=== PATIENT | male | born 1975 | race Caucasian/White ===

== ENCOUNTER 2017-03-11 13:54 | Inpatient (IN) | payer OTHER ==
--- NOTE | ~2017-03-11 | EKG ---
PATIENT: MIRA GALVAN UNIT #: [id number] Ventricular Rate: 69 BPM Atrial Rate: 69 BPM P-R Interval: 146 ms QRS Duration: 88 ms Q-T Interval: 408 ms QTC Calculation(Bezet): 437 ms P Sumrall: 67 degrees Calculated R Sumrall: 52 degrees Calculated T Sumrall: 21 degrees Diagnosis Line: Normal sinus rhythm Diagnosis Line: Normal ECG Diagnosis Line: When compared with ECG of 31-OCT-2011 20:58, Diagnosis Line: No significant change was found Diagnosis Line: Confirmed by ALYSSIA OWENS MD ([id number]) on Diagnosis Line: 03/12/2017 9:07:55 PM INTERPRETING MD: TINY
--- NOTE | ~2017-03-11 | CR72 ---
[facility] A Service of [facility] & [facility] RADIOLOGY TEXT RESULTS PATIENT: MIRA GALVAN [facility] UNIT #: [id number] AGE: [address]: Tracie Randolph MD SEX: M ORDER DR: [id number] [facility] [address] [facility]. [place], [place] [address] [id number] MR#: [id number] Acc #: [id number] NAME: MIRA GALVAN : 1975 SEX: M STUDY DATE/TIME: 03/11/2017 14:14 UNIT: [facility] ROOM: STUDY DESCRIPTION: CR Chest Single View Portable Attending Physician: Paxton Vaughn M.D. Ordering Physician: Paxton Vaughn M.D. Primary Care Physician: No Primary Care Physician MEDICAL IMAGING REPORT This report is preliminary unless electronic signature is present EXAM Portable chest x-ray 03/11/2017 HISTORY Cardiac arrest. Today. Heroin OD, CPR performed. Right rib pain post CPR. AP radiograph of the chest is presented. COMPARISON 10/31/2011 FINDINGS No acute bony abnormality is seen on this single AP image. Please correlate clinically. If it would assist in management, dedicated rib series could be considered. Heart and mediastinum normal in size and contour. Lungs well inflated without evidence of acute pulmonary disease. No pleural effusion or pneumothorax. Extreme lung bases not included on field of view. No suspicious nodule. There appear to be calcified granulomata in the right lung. Dictated by... Demetrius Benavides M.D. THIS IS AN ELECTRONICALLY VERIFIED REPORT Demetrius Benavides M.D. at 03/12/2017 5:16 PM Rg TD: 03/11/2017 16:53 JOB #: [id number] MEDICAL IMAGING REPORT Page 1 of 1 COPY
--- NOTE | ~2017-03-11 | HP ---
Unit #: [id number] #: [id number] Patient: MIRA GALVAN [id number] [address] [address] [id number] I MR#: [id number] NAME: MIRA GALVAN ROOM: [address]75 Age: 41 Sex: M Admission Date: 03/11/2017 : 1975 Attending Physician: Shasta Malik M.D. HISTORY AND PHYSICAL CHIEF COMPLAINT Altered mental status. HISTORY OF PRESENT ILLNESS The patient is a 41-year-old male with a history of alcohol abuse brought to the emergency room after being found down. The patient was resuscitated with CPR for two minutes. The patient did not receive any epinephrine. The patient was brought to the emergency room. The patient received Narcan 4 mg and patient became more alert and awake. The patient complains of rib pain from the CPR. The patient is a poor historian. The patient is sleepy and is not answering much of the questions. The patient stated that patient snorted for the first time today, and the patient passed out. The patient denies chest pain, nausea, vomiting, or shortness of breath. The patient was found to be hypothermic with a temperature of 94. The patient is on Hazel Huggers. PAST MEDICAL HISTORY 1. Alcohol abuse. 2. Multiple admission to [facility] for alcohol abuse. 3. Depression. 4. Chronic back pain. PAST SURGICAL HISTORY Bilateral foot surgery for trauma. SOCIAL HISTORY He drinks heavily 10-12 beers per day. Positive for smoking 1.5 packs per day and positive for heroin. FAMILY HISTORY Father is alcoholic. MEDICATIONS Ibuprofen. ALLERGIES None. REVIEW OF SYSTEMS A 14-point review of systems was performed and only pertinent positive findings are as described above. The remaining are negative. PHYSICAL EXAMINATION GENERAL: Patient is lying in bed not in acute distress. Unit #: [id number] #: [id number] Patient: MIRA GALVAN VITAL SIGNS: Temperature 94.9, pulse 78, respirations 17, and saturating 100% on 15 liters of oxygen. HEENT: Head atraumatic, normocephalic. Pupils equal, round, and reactive to light and accommodation. Extraocular movements are intact. NECK: Supple. LUNGS: Decreased air entry at the bases. HEART: Regular rate and rhythm. ABDOMEN: Soft. Positive bowel sounds. EXTREMITIES: No cyanosis, no clubbing. NEUROLOGIC: Awake and more sleepy. DIAGNOSTIC STUDIES LABORATORY: Urinalysis shows 2+ protein, 2+ blood, urine WBCs 5-10. Urine drug screen is positive for benzodiazepines, amphetamines, and marijuana. Lactic acid is 3.1. Sodium 139, potassium 4.5, chloride 102, bicarb 26, glucose 221, BUN 14, and creatinine 1.5. Alcohol less than 5. INR is 1. WBC 13.8, hemoglobin 14, hematocrit 43.3, and platelets 111,000. ASSESSMENT 1. Altered mental status. 2. Heroin abuse. 3. Resuscitated arrest. 4. Questionable sepsis. 5. Acute kidney injury. PLAN Admit the patient to inpatient. Patient will be placed in the ICU for close monitoring. Continue with IV fluids. Patient will be on Hazel Huggers and sepsis protocol. Rule out ischemia with troponins. Patient will be seen by the leather patcher. Further recommendations will follow. Dictated by Bob Kulkarni TD: 03/11/2017 17:55 JOB #: [id number] HISTORY AND PHYSICAL Page 1 of 1 X SHASTA MALIK MD X HISTORY AND PHYSICAL
--- NOTE | ~2017-03-11 | DS ---
Unit #: [id number] #: [id number] Patient: MIRA GALVAN [id number] [address] [address] [id number] I MR#: [id number] NAME: MIRA GALVAN ROOM: [facility] Age: 41 Sex: M Admission Date: 03/11/2017 : 1975 Discharge Date: 03/12/2017 Attending Physician: Tracie Randolph M.D. Primary Care Physician: No Primary Care Physician DISCHARGE SUMMARY NOTE Please note patient left AMA. I did not see and evaluate patient. HISTORY OF PRESENT ILLNESS/HOSPITAL COURSE Patient is a 41-year-old male with a history of alcohol abuse, brought to the emergency room after being found down. He was resuscitated with CPR for two minutes. He did not receive any epinephrine. Brought to the emergency department, received 4 mg of Narcan and became more awake and alert. He complained of rib pain from CPR. He himself was a fairly poor historian. He was placed in ICU overnight. He was observed. ICU services saw and evaluated him in the morning. He was noted to have elevated troponins of 0.13. He was cleared from pulmonary standpoint before I could see and evaluate the patient. Later on in the morning/early afternoon patient deiced that he would like to leave against medical advice. FINAL DISCHARGE DIAGNOSES 1. Resuscitated arrest. 2. Chronic alcohol abuse. 3. Depression. 4. Chronic back pain. 5. Polysubstance abuse. DISCHARGE MEDICATIONS Not known, patient left AMA. PROGNOSIS Long-term prognosis of this patient is poor. Life expectancy is likely less than six months. Dictated by... Bob Greene/zyiad TD: 03/12/2017 21:57 JOB #: [id number] Unit #: [id number] #: [id number] Patient: MIRA GALVAN DISCHARGE SUMMARY Page 1 of 1 X Tracie Randolph MD X DISCHARGE SUMMARY
--- NOTE | ~2017-03-11 | CO ---
Unit #: [id number] #: [id number] Patient: MIRA GALVAN [id number] [address] [address] [id number] MR#: [id number] NAME: MIRA GALVAN ROOM: [facility] Age: 41 Sex: M Admission Date: 03/11/2017 : 1975 Attending Physician: Tracie Randolph M.D. Primary Care Physician: No Primary Care Physician Consultation Date: 03/12/2017 CONSULTATION REPORT REASON FOR CONSULT ICU management. CHIEF COMPLAINT Altered mental status. HISTORY OF PRESENT ILLNESS This is a 41-year-old male with a past medical history significant for alcohol abuse and recreational drug abuse who presented to the emergency room after he was found down by his girlfriend. The patient's girlfriend stated that she found him nair and agonal so she immediately started CPR for almost two minutes and called EMS. By the time EMS personnel arrived, patient had pulse and no CPR or other medications were needed at that time. The patient received Narcan 4 mg which made him more awake and alert. His only complaint was rib pain from chest compression. The patient denied being sick for the last few days. He denied any fever, chills or cough. No nausea, vomiting or diarrhea. PAST MEDICAL HISTORY 1. Alcohol abuse. 2. Depression. 3. Chronic back pain. PAST SURGICAL HISTORY Bilateral foot surgery for trauma. SOCIAL HISTORY Patient drinks 10 to 12 beers daily. He smokes one and a half packs per day and he is also a heroin addict. FAMILY HISTORY Father is an alcoholic. HOME MEDICATIONS Ibuprofen. ALLERGIES None. REVIEW OF SYSTEMS Twelve point review of systems were obtained and were negative except for rib pain. Unit #: [id number] #: [id number] Patient: MIRA GALVAN PHYSICAL EXAMINATION GENERAL: The patient appears in acute distress. VITAL SIGNS: Currently, temperature 97.9, respiratory rate 16, O2 saturation 98% and blood pressure is 132/72. HEENT: Atraumatic, normocephalic. PERRLA, EOMI. NECK: Supple. No JVD, no lymphadenopathy. CHEST: Clear to auscultation bilaterally. HEART: S1, S2. No murmur, gallops or rubs. ABDOMEN: Soft, nontender. Bowel sounds positive. No hepatosplenomegaly. EXTREMITIES: No edema or cyanosis. SKIN: No rashes. DIAGNOSTIC STUDIES LABORATORY: Creatinine 0.9, sodium 133, troponin 0.05. Lactic acid on presentation was 3.1. IMAGING: Chest x-ray is unremarkable. ASSESSMENT 1. Acute hypoxic respiratory failure, resolved, secondary to apnea. 2. Drug overdose. 3. Altered mental status. 4. Alcoholism. 5. Non-ST elevation myocardial infarction. Stress demands from likely hypoxia. 6. Lactic acidosis, likely related to also hypoxia and possibly hypotension. PLAN 1. Patient is currently hemodynamically stable on room air. He was on 15 L nasal cannula on presentation. 2. Continue IV hydration but will discontinue later when he is tolerating diet. 3. Pain management. 4. Will observe off antibiotics. 5. I don't feel like he needs any cardiac workup as his non-STEMI is likely related to hypoxia and chest compression. 6. DVT prophylaxis. I discussed the case with patient himself, his girlfriend and the nursing staff. Dictated by... Bob Menard TD: 03/12/2017 09:46 JOB #: [id number] Unit #: [id number] #: [id number] Patient: MIRA GALVAN CONSULTATION REPORT Page 1 of 1 X CARLOS EDUARDO DALE MD X CONSULTATION REPORT
[~2017-03-11 13:54] MED LIST: ACETAMINOPHEN PO; AL-MAG HYDROX-S30 M1 PO; ALBUTEROL17 GM INH; ANTIDIARRHEAL2 MG PO; ATIVAN0.5 MG PO; BACTRIM DS TABL1 TAB PO; BENADRYL25 MG PO; BENTYL10 MG PO; DOXYCYCLIN25 MG/5 ML PO; FAMOTIDINE PO; FLEXERIL PO; FOLIC ACID1 MG PO; GRIFULVIN V500 MG PO; IBUPROFEN PO; KEFLEX500 MG PO; KETOPROFEN PO; LIBRIUM; LIBRIUM25 MG PO; LORTAB 5/500 TA1 TA2 PO; MEDROL PO; MEDROL4 MG/DOSE- PO; MOBIC PO; NAPROXEN PO; NEURONTIN600 MG PO; NICOTINE TRANSD21 MG EXT; NO MEDICATIONS; PERCOCET5/325 PO; PHENERGAN PO; PHENERGAN25 MG PO; PHENERGAN50 MG/SUPP RC; PREDNISONE PO; PROTONIX PO; THERAPEUTIC M PO; THIAMINE HCL100 MG PO; TRAZODONE PO; TRIAMCINOLONE AC1 GM EXT; VIBRAMYCIN100 M1 PO; VICODIN 5/1 TAB 5/50 PO; VICODIN 5/500 T1 TAB PO; ZOFRAN 2 MG4 MG/2 ML IV
[2017-03-11 14:51] LABS: BASOPHIL% 0.2 % (0-2.5); EOSINOPHIL% 0.3 % (0.0-7.0); HEMATOCRIT 43.3 % (38.0-50.0); LYMPHOCYTE# 0.7 X10e3 (1.0-3.5); LYMPHOCYTE% 5.2 % (17.0-45.0); MEAN CELL VOLUME 91.2 FL (83-96); MEAN CORPUSCULAR HEMOGLOBIN 29.5 PG (28-34); MEAN CORPUSCULAR HGB CONC 32.3 g/dL (30-36); MEAN PLATELET VOLUME 9.7 FL (6.5-11.5); MONOCYTE# 0.2 X10e3 (0-1.0); MONOCYTE% 1.8 % (3.0-12.0); NEUTROPHIL# 12.8 X10e3 (1.5-7.1); NEUTROPHIL% 92.5 % (40-75); PLATELET COUNT 111 X10e3 (140-420); RED BLOOD COUNT 4.75 X10e (3.90-5.60); RED CELL DISTRIBUTION WIDTH 12.9 % (11.0-15.5); WHITE BLOOD COUNT 13.8 X10e3 (4.0-10.5)
[2017-03-11 14:52] LABS: DIFF IND NO
[2017-03-11 15:04] LABS: PROTHROMBIN TIME (PATIENT) 10.1 SECONDS (9.6-11.5)
[2017-03-11] MEDS ORDERED: NO MEDICATIONS (15:14)
[2017-03-11] MEDS ORDERED: IBUPROFEN PO (15:14)
[2017-03-11 15:44] LABS: URINE SOURCE CLEAN CATCH
[2017-03-11 15:47] LABS: ALBUMIN SERUM 4.6 g/dL (3.5-5.0); ALKALINE PHOSPHATASE 70 U/L (32-92); ALT (SGPT) 17 U/L (10-40); AST (SGOT) 22 U/L (10-42); BILIRUBIN, DIRECT 0.1 mg/dL (0.0-0.2); BILIRUBIN,INDIRECT 0.6 mg/dL (0.0-0.9); BILIRUBIN,TOTAL 0.7 mg/dL (0.2-2.0); BLOOD UREA NITROGEN 14 mg/dL (9-23); BUN/CREATININE RATIO 9.33; CALCIUM SERUM 9.6 mg/dL (8.4-10.2); CARBON DIOXIDE 26 mmol/L (22-31); CHLORIDE 102 mmol/L (100-111); CREATININE SERUM 1.5 mg/dL (0.6-1.4); GLOM FILT RATE Estimated 56.2 mL/min (>60); GLUCOSE FASTING 221 mg/dL (70-110); POTASSIUM 4.5 mmol/L (3.5-5.1); PROTEIN TOTAL SERUM 8.1 g/dL (6.0-8.3); SODIUM 139 mmol/L (135-145)
[2017-03-11 15:55] LABS: URINE APPEARANCE CLEAR; URINE BILIRUBIN NEG (NEG); URINE BLOOD 2+ (NEG); URINE COLOR YELLOW; URINE GLUCOSE >1000 MG/DL (NEG); URINE KETONE NEG (NEG); URINE LEUKOCYTE ESTERASE NEG (NEG); URINE NITRATE NEG (NEG); URINE PROTEIN 2+ (NEG); URINE SPECIFIC GRAVITY 1.017 (1.003-1.035); URINE UROBILINOGEN 0.2 MG/DL (NEG)
[2017-03-11 15:57] LABS: ALCOHOL BLOOD <5 mg/dL (0)
[2017-03-11 15:57] LABS: CULTURE INDICATED? YES; URBCS1 AUWI 25-50 /[HPF] (0-2); URINE BACTERIA AUWI NEG (NEGATIVE); URINE SQUAMOUS EPITHELIAL CELL MOD /[HPF]
[2017-03-11 16:06] LABS: AMPHETAMINE POS (NEG); BARBITURATES NEG (NEG); BENZODIAZEPINES POS (NEG); COCAINE NEG (NEG); MARIJUANA POS (NEG); OPIATES NEG (NEG); TRICYCLIC ANTIDEPRESSANTS NEG (NEG); U METHADONE NEG (NEG)
[2017-03-11 16:14] LABS: U HYALINE CASTS AUWI 0-2 /[LPF]
[2017-03-11 18:52] LABS: POC - CKMB 3.1 ng/mL (0.0-7.9); POC - TROPONIN 0.08 ng/mL (<=0.05)
[2017-03-11 23:30] LABS: %MB 4.9 % (0.0-4.0); MB 5.1 ng/ml
[2017-03-12 07:36] LABS: HEMATOCRIT 35.3 % (38.0-50.0); MEAN CELL VOLUME 90.2 FL (83-96); MEAN CORPUSCULAR HGB CONC 33.3 g/dL (30-36); MEAN PLATELET VOLUME 10.4 FL (6.5-11.5); RED BLOOD COUNT 3.91 X10e (3.90-5.60); RED CELL DISTRIBUTION WIDTH 12.8 % (11.0-15.5)
[2017-03-12 08:00] LABS: BUN/CREATININE RATIO 14.44; CALCIUM SERUM 8.5 mg/dL (8.4-10.2); CREATININE SERUM 0.9 mg/dL (0.6-1.4); GLOM FILT RATE Estimated 104.2 mL/min (>60); POTASSIUM 3.8 mmol/L (3.5-5.1)
[2017-03-12 08:07] LABS: %MB 5.1 % (0.0-4.0); MB 5.2 ng/ml
[2017-03-12 08:19] LABS: HEMOGLOBIN 11.7 gm/dL (13.0-16.0); WHITE BLOOD COUNT 5.6 X10e3 (4.0-10.5)
== END 2017-03-12 13:00 | disposition left against medical advice (07) | DRG 917 ==
LOC: CED 13:54 → CEDOF 17:00 → CED 17:20 → CICCU2 19:41 → CEDOF 19:41 → CICCU2 19:41
PROVIDERS: Emergency Medicine; Internal Medicine
DX: T40.1X1A Poisoning by heroin, accidental (unintentional), initial encounter (principal); J96.01 Acute respiratory failure with hypoxia; I46.9 Cardiac arrest, cause unspecified; I21.4 Non-ST elevation (NSTEMI) myocardial infarction; E87.2 Acidosis; N17.9 Acute kidney failure, unspecified; Y92.009 Unspecified place in unspecified non-institutional (private) residence as the place of occurrence of the external cause; R41.82 Altered mental status, unspecified; F10.20 Alcohol dependence, uncomplicated; F32.9 Major depressive disorder, single episode, unspecified; G89.29 Other chronic pain; M54.9 Dorsalgia, unspecified; F17.210 Nicotine dependence, cigarettes, uncomplicated; F11.10 Opioid abuse, uncomplicated; T68.XXXA Hypothermia, initial encounter
CPT/HCPCS: 71010; 80048; 80076; 80307; 81003; 82550; 82553; 82947; 83605; 84484; 85025; 85027; 85610; 87040; 87086; 93005; 96360; 96361; 99291; G0480; J0696; J1650

== ENCOUNTER 2017-03-17 01:53 | Emergency (ER) | payer OTHER ==
[2017-03-17 02:44] LABS: URINE SOURCE CLEAN CATCH
[2017-03-17 02:46] LABS: URINE APPEARANCE CLEAR; URINE BILIRUBIN NEG (NEG); URINE BLOOD 2+ (NEG); URINE COLOR YELLOW; URINE GLUCOSE NEG (NORM); URINE KETONE NEG (NEG); URINE LEUKOCYTE ESTERASE 1+ (NEG); URINE NITRATE NEG (NEG); URINE PROTEIN TRACE (NEG); URINE SPECIFIC GRAVITY >=1.030 (1.003-1.035); URINE UROBILINOGEN 0.2 MG/DL (NORM)
[2017-03-17 02:52] LABS: MICRO INDICATED? YES
[2017-03-17 02:53] LABS: URINE RBC 25-50 /[HPF] (0-2)
[2017-03-17 02:54] LABS: CULTURE INDICATED? YES; URINE BACTERIA NEG (NEG); URINE MUCUS PRESENT; URINE SQUAMOUS EPITHELIAL CELL OCCAS /[HPF]; URINE WBC 50-100 /[HPF] (0-5)
[2017-03-19 23:41] LABS: CHLAMYDIA TRACH Not Detected (Not Detected); N GONOR Not Detected (Not Detected)
== END 2017-03-17 03:56 | disposition home or self-care (01) ==
LOC: SED 01:53
PROVIDERS: Emergency Medicine
DX: N41.0 Acute prostatitis (principal); F17.200 Nicotine dependence, unspecified, uncomplicated
CPT/HCPCS: 81003; 87086; 87491; 87591; 96372; 99283; J0696; J1885